=== PATIENT | female | born 2000 | race African-American/Black ===

== ENCOUNTER 2025-05-03 20:06 | Emergency (ER) | payer MEDICAID ==
[~2025-05-03] VITALS: Ht 177.8 cm; Wt 137.3 kg
[2025-05-03 20:14] VITALS: TEMP 98.9
[2025-05-03 21:22] LABS: PLATELET COUNT (AUTO) 230 K/uL (150-450); RED BLOOD CELL COUNT(AUTO) 4.19 MIL/uL (4.00-5.20); RED CELL DISTRIBUTION WIDTH 17.4 % (11.5-14.5); WHITE BLOOD COUNT (AUTO) 7.3 K/uL (4.5-11.0)
[2025-05-03 21:32] LABS: CALCIUM, TOTAL 8.9 mg/dL (8.8-10.5); CREATININE 0.81 mg/dL (0.60-1.30); GLOMERULAR FILTR. RATE CALC > 60 mL/min (>60); GLUCOSE,RANDOM 99 mg/dL (70-110); SODIUM SERUM 142 mmol/L (136-145); UREA NITROGEN, BLOOD 8 mg/dL (7-18)
[2025-05-03 21:38] LABS: ASPARTATE AMINOTRANSFERASE 16.0 U/L (15-37); TOTAL PROTEIN, SERUM 7.5 g/dL (6.4-8.2)
[2025-05-04] MEDS ORDERED: FAMO20 PO (00:29)
[2025-05-04] MEDS: FAMOTIDINE 20 MG TABLET PO ONE (00:49)
[2025-05-04 00:54] VITALS: BP 126/83; PULSE 90; RESP 18; O2SAT 99
== END 2025-05-04 01:02 | disposition home or self-care (01) ==
LOC: EMS 20:12
DX: R10.11 Right upper quadrant pain (principal); R11.0 Nausea; I10 Essential (primary) hypertension; J45.909 Unspecified asthma, uncomplicated; Z88.8 Allergy status to other drugs, medicaments and biological substances
CPT/HCPCS: 76705; 80048; 80076; 83690; 84703; 85025; 99284

== ENCOUNTER 2025-05-11 14:18 | Emergency (ER) | payer MEDICAID ==
[~2025-05-11] VITALS: Ht 167.6 cm; Wt 148.7 kg
[~2025-05-11 14:18] MED LIST: FAMO20 PO
[2025-05-11 15:06] LABS: PLATELET COUNT (AUTO) 194 K/uL (150-450); RED BLOOD CELL COUNT(AUTO) 4.19 MIL/uL (4.00-5.20); RED CELL DISTRIBUTION WIDTH 17.4 % (11.5-14.5); WHITE BLOOD COUNT (AUTO) 12.9 K/uL (4.5-11.0)
[2025-05-11 15:09] LABS: CALCIUM, TOTAL 8.6 mg/dL (8.8-10.5); CREATININE 0.94 mg/dL (0.60-1.30); GLOMERULAR FILTR. RATE CALC > 60 mL/min (>60); GLUCOSE,RANDOM 95 mg/dL (70-110); SODIUM SERUM 137 mmol/L (136-145); UREA NITROGEN, BLOOD 9 mg/dL (7-18)
[2025-05-11] MEDS: ACETAMINOPHEN 500 MG TABLET PO ONE (15:19)
[2025-05-11 16:04] LABS: COVID AG,FIA SOURCE NASAL SWAB
[2025-05-11 16:29] LABS: SARS-COV2 (COVID) ANTIGEN,FIA Negative (Negative)
[2025-05-11 16:30] LABS: INFLUENZA TYPE A NEGATIVE FOR TYPE A (NEGATIVE); INFLUENZA TYPE B NEGATIVE FOR TYPE B (NEGATIVE)
[2025-05-11 16:45] VITALS: TEMP 100.4
[2025-05-11 17:35] LABS: APPEARANCE,URINE HAZY (CLEAR); GLUCOSE, URINE (UA) NEGATIVE (NEGATIVE); LEUKOCYTE ESTERASE ,URINE NEGATIVE (NEGATIVE); NITRATE,URINE NEGATIVE (NEGATIVE); OCCULT BLOOD,URINE LARGE (NEGATIVE); SPECIFIC GRAVITIY, URINE 1.008 (1.003-1.030)
[2025-05-11 18:01] LABS: SQUAMOUS EPITHELIAL CELL,UR Few /LPF (None Seen)
[2025-05-11 18:31] VITALS: BP 139/81; PULSE 78; RESP 18; O2SAT 97
== END 2025-05-11 18:46 | disposition home or self-care (01) ==
LOC: EMS 14:18
DX: J06.9 Acute upper respiratory infection, unspecified (principal); B97.89 Other viral agents as the cause of diseases classified elsewhere; I10 Essential (primary) hypertension; J45.909 Unspecified asthma, uncomplicated; Z79.899 Other long term (current) drug therapy; Z88.8 Allergy status to other drugs, medicaments and biological substances; Z20.822 Contact with and (suspected) exposure to COVID-19
CPT/HCPCS: 71045; 80048; 81001; 85025; 87081; 87430; 87804; 99284; 36415-L1; 36415-TC

== ENCOUNTER 2025-05-12 23:37 | Emergency (ER) | payer MEDICAID ==
[~2025-05-12] VITALS: Ht 167.6 cm; Wt 145.4 kg
[2025-05-13 00:19] VITALS: TEMP 99.6
[2025-05-13] MEDS ORDERED: AMOX500C2 PO (00:59)
[2025-05-13] MEDS: LIDOCAINE/PF 1% 2 ML VIAL IM ONE (01:36)
[2025-05-13] MEDS: CefTRIAXone SODIUM 1 GM/VIAL IM ONE (01:36)
[2025-05-13] MEDS: IBUPROFEN 100 MG/5 ML SUSPENSION UDCUP PO ONE (01:36)
[2025-05-13 01:45] VITALS: BP 119/70; PULSE 74; RESP 16; O2SAT 98
== END 2025-05-13 02:05 | disposition home or self-care (01) ==
LOC: EMS 23:38
DX: J03.90 Acute tonsillitis, unspecified (principal); I10 Essential (primary) hypertension; J45.909 Unspecified asthma, uncomplicated; Z79.899 Other long term (current) drug therapy; Z88.8 Allergy status to other drugs, medicaments and biological substances
CPT/HCPCS: 99283; 96372; J0696; J3490